=== PATIENT | female | born 1980 | race Caucasian/White ===

== ENCOUNTER 2017-01-16 09:09 | Emergency (ER) | payer OTHER ==
--- NOTE | ~2017-01-16 | CT4 ---
[facility] A Service of [facility] & [facility] RADIOLOGY TEXT RESULTS PATIENT: KENNEDY SIERRA LOCATION: SED : 78 UNIT #: [id number] AGE: [address]: Rg Greenfield DO SEX: F ORDER DR: [id number] [place] [id number] E MR#: [id number] Acc #: [id number] NAME: KENNEDY SIERRA : 1980 SEX: F STUDY DATE/TIME: 01/16/2017 9:53 UNIT: SED ROOM: STUDY DESCRIPTION: CT Abd and Pelv Wo Cont Attending Physician: Rg Greenfield Ordering Physician: Physician Non-Staff Primary Care Physician: Rg Killian M.D. MEDICAL IMAGING REPORT This report is preliminary unless electronic signature is present. EXAM CT of the abdomen and pelvis with contrast INDICATIONS Inability to urinate, patient has a history of kidney stones, symptoms started 24 [address] ago. TECHNIQUE Ax[address] CT images were obtained from the dome of the diaphragm through the symphysis pubis. No oral or intravenous contrast material was administered. This CT exam was performed with one or more of the following radiation dose reduction techniques: Automatic exposure control, adjustment of mA and/or kV according to patient size, and iterative reconstruction. FINDINGS Images through the lung bases demonstrate some left basilar scarring. Liver and gallbladder appear unremarkable, as are the spleen, stomach and proximal small bowel. The appendix is visualized and is within normal limits. Patient has a punctate nonobstructing stone within the left kidney measuring about 3 mm in size. I do not see any stones on the right and there is no hydroureteronephrosis on either side. However, I do think this patient's bladder appears thick-walled and there is probably some perivesical stranding. I think findings are certainly suspicious for cystitis, especially given history. Uterus is retroflexed. I do not see any evidence of mechanical bowel obstruction. I do think there are probably some colonic diverticula without any convincing evidence of diverticulitis. Left ovary is not well seen. I think the right ovary is probably within normal limits. Review of bony windows demonstrates lumbar scoliosis with convexity to the STS. [facility] A Service of [facility] & [facility] RADIOLOGY TEXT RESULTS PATIENT: KENNEDY SIERRA LOCATION: SED : 78 UNIT #: [id number] AGE: [address]: Rg Greenfield DO SEX: F ORDER DR: left. No aggressive osseous abnormalities are seen IMPRESSION 1. Punctate nonobstructing stone within the left kidney measuring about 3 mm in size. No stones are seen on the right and there is no evidence of hydronephrosis. I do, however question if this patient's bladder is thick-walled with perivesical soft tissue stranding. This certainly could reflect cystitis, especially given history. I would suggest correlation with urinalysis and urine cultures. 2. The appendix is visualized and is within normal limits. 3. Left ovary is not well seen but I do not see any suspicious adnexal masses. Right ovary is probably within normal limits for a 36-year-old woman. 4. Colonic diverticulosis without any evidence of diverticulitis. 5. Also noted but not mentioned in the report is cholelithiasis. Dictated by... Mahogany Killian M.D. THIS IS AN ELECTRONICALLY VERIFIED REPORT Mahogany Killian M.D. at 01/18/2017 9:19 AM AFF/psc TD: 01/16/2017 22:19 JOB #: [id number] MEDICAL IMAGING REPORT
[~2017-01-16 09:09] MED LIST: DICLOFENAC PO; IBUPROFEN PO; IBUPROFEN800 MG PO; NO MEDICATIONS; ROBAXIN PO; VICODIN 5/500 T1 TAB PO
[2017-01-16 09:16] LABS: URINE SOURCE CLEAN CATCH
[2017-01-16 09:19] LABS: URINE APPEARANCE CLOUDY; URINE BILIRUBIN NEG (NEG); URINE BLOOD 3+ (NEG); URINE COLOR YELLOW; URINE GLUCOSE NEG (NORM); URINE KETONE NEG (NEG); URINE LEUKOCYTE ESTERASE 3+ (NEG); URINE NITRATE POS (NEG); URINE PROTEIN 2+ (NEG); URINE UROBILINOGEN 0.2 MG/DL (NORM)
[2017-01-16 09:26] LABS: MICRO INDICATED? YES
[2017-01-16 09:27] LABS: URINE RBC 25-50 /[HPF] (0-2)
[2017-01-16 09:28] LABS: CULTURE INDICATED? YES; URINE BACTERIA 1+ (NEG); URINE WBC 100-200 /[HPF] (0-5)
[2017-01-16 09:34] LABS: BASOPHIL% 0.5 % (0-2.5); EOSINOPHIL# 0.4 X10e3 (0-0.7); EOSINOPHIL% 4.2 % (0.0-7.0); HEMATOCRIT 43.8 % (35.0-45.0); HEMOGLOBIN 14.7 gm/dL (12.0-16.0); LYMPHOCYTE# 1.7 X10e3 (1.0-3.5); LYMPHOCYTE% 17.8 % (17.0-45.0); MEAN CELL VOLUME 95.7 FL (83-96); MEAN CORPUSCULAR HEMOGLOBIN 32.1 PG (28-34); MEAN CORPUSCULAR HGB CONC 33.5 g/dL (30-36); MEAN PLATELET VOLUME 8.8 FL (6.5-11.5); MONOCYTE# 0.6 X10e3 (0-1.0); MONOCYTE% 5.8 % (3.0-12.0); NEUTROPHIL# 6.9 X10e3 (1.5-7.1); NEUTROPHIL% 71.7 % (40-75); PLATELET COUNT 160 X10e3 (140-420); RED BLOOD COUNT 4.57 X10e (3.90-5.30); RED CELL DISTRIBUTION WIDTH 13.5 % (11.0-15.5); WHITE BLOOD COUNT 9.7 X10e3 (4.0-10.5)
[2017-01-16 09:47] LABS: DIFF IND NO
[2017-01-16 09:53] LABS: ALBUMIN SERUM 4.1 g/dL (3.5-5.0); ALKALINE PHOSPHATASE 136 U/L (32-92); ALT (SGPT) 48 U/L (10-40); AST (SGOT) 48 U/L (10-42); BILIRUBIN, DIRECT 0.1 mg/dL (0.0-0.2); BILIRUBIN,INDIRECT 0.3 mg/dL (0.0-0.9); BILIRUBIN,TOTAL 0.4 mg/dL (0.2-2.0); BLOOD UREA NITROGEN 12 mg/dL (9-23); CALCIUM SERUM 9.1 mg/dL (8.4-10.2); CARBON DIOXIDE 25 mmol/L (22-31); CHLORIDE 106 mmol/L (100-111); CREATININE SERUM 0.8 mg/dL (0.6-1.4); GLOM FILT RATE Estimated ABOVE60 mL/min (>60); GLUCOSE FASTING 102 mg/dL (70-110); LIPASE 56 U/L (22-51); POTASSIUM 4.1 mmol/L (3.5-5.1); PROTEIN TOTAL SERUM 7.1 g/dL (6.0-8.3); SODIUM 137 mmol/L (135-145)
== END 2017-01-16 12:48 | disposition home or self-care (01) ==
LOC: SED 09:09
PROVIDERS: Emergency Medicine
DX: N10 Acute pyelonephritis (principal); Z87.442 Personal history of urinary calculi; Z90.710 Acquired absence of both cervix and uterus
CPT/HCPCS: 36415; 74176; 80048; 80076; 81003; 83690; 84703; 85025; 87086; 87088; 87186; 96374; 96375; 96376; 99284; J1170; J1885; J1956; J2405